=== PATIENT | female | born 1985 | race Caucasian/White ===

== ENCOUNTER → 2024-02-01 09:24 | Outpatient (REF) | payer OTHER, SELFPAY | LOC: WDC 09:24 | PROVIDERS: ATTENDING PHYSICIAN Surgery; FAMILY PHYSICIAN Nurse Practitioner Adult Health | DX: R92.8 Other abnormal and inconclusive findings on diagnostic imaging of breast (principal) | CPT/HCPCS: 76642 ==

== ENCOUNTER 2024-08-21 17:21 | Emergency (ER) | payer OTHER, SELFPAY ==
[2024-08-21 17:29] VITALS: BP 179/121
--- NOTE | 2024-08-21 17:31 | ED.GENMED ---
ED Provider Triage
-
Patient seen by provider in Triage?: Seen in Triage
Attestation: A medical screening examination has been initiated by a qualified medical provider. Based on the assessment performed at this time, it has been determined that an emergent medical condition may exist and the patient has been informed
that further medical evaluation and possible additional diagnostic testing may be needed.
HPI: 39-year-old female presents for went to OB for possible yeast infection and found to have high blood pressure.
Has a headache 1/10 past 20 minutes. Denies n/v. Denies change in vision.
New med since [employer] control. At [facility] office the patch was removed.
GENERAL: Alert , in no apparent distress
EYE: No visual abnormalities.
NECK: Trachea midline
ENT: No visible abnormalities.
LUNGS: No acute respiratory distress
NEUROLOGICAL: Alert and oriented
SKIN: Skin intact. No visible changes.
MUSCULOSKELETAL: Moving extremities normally
PSYCH: Normal and appropriate interaction.
This is a medical evaluation conducted in person to initiate diagnostic evaluation and provide initial therapeutics. Please see further documentation by the treating clinician.
History of Present Illness
General
Chief Complaint: Blood Pressure Problem
ED Attending Note
-
Portions of this chart may have been created with voice recognition software.� Occasional wrong word or��sound alike� substitutions may have occurred due to the inherent limitations of voice recognition software.
Discharge Plan
Departure
Prescriptions:
No Action
One Tablet Capsule
1 cap PO DAILY
calcium carbonate [Antacid (calcium carbonate)] 1 TABLET tablet,chewable
1 tab PO PRN PRN (Reason: heartburn)
Gasx
1 tab PO PRN PRN (Reason: ABD. DISCOMFORT)
Zantac
1 tab PO PRN PRN (Reason: ABDOMINAL GAS)
ibuprofen 600 MG tablet
600 mg PO Q4HPRN PRN (Reason: moderate pain/cramps) 0RF
Interventions
Interventions:
*Risk Screen - Suicide Last Done: 08/21/24 17:29
*Neglect/Abuse Screening Last Done: 08/21/24 17:29
Discharge Date and Time
Print Language: STATELESS
[2024-08-21 17:52] LABS: % Basophils 0.9 % (0-2); % Eosinophils 1.8 % (0-6); % Immature Granulocytes 0.3 % (0-0.5); % Monocytes 5.9 % (1.7-9.3); % Neutrophils 62.1 % (42.2-75.2); Absolute Basophils 0.1 10^3/uL (0-0.2); Absolute Eosinophils 0.1 10^3/uL (0-0.7); Absolute Lymphocytes 2.3 10^3/uL (1.2-3.4); Absolute Monocytes 0.5 10^3/uL (0.1-0.6); Absolute Neutrophils 4.9 10^3/uL (1.4-6.5); Hematocrit 40.4 % (37.0-47.0); Hemoglobin 13.5 g/dL (12.0-16.0); Mean Corp Hgb Conc. 33.4 g/dL (33.0-37.0); Mean Corpuscular Hgb 31.5 pg (27.0-31.0); Mean Corpuscular Volume 94.4 fL (81.0-99.0); Mean Platelet Volume 8.7 fL (7.4-10.4); Nucleated Red Blood Cells % 0 %; Platelet Count 277 10^3/uL (130-400); Red Blood Cell Count 4.28 10^6/uL (4.20-5.40); Red Cell Dist. Width 12.9 % (11.5-14.5); White Blood Cell Count 7.9 10^3/uL (4.8-10.8)
[2024-08-21 18:07] LABS: ALT (SGPT) 16 U/L (0-35); AST (SGOT) 21 U/L (14-36); Albumin 4.4 g/dl (3.5-5.0); Alkaline Phosphatase 56 U/L (38-126); Blood Urea Nitrogen 16 mg/dl (7-17); Calcium 9.3 mg/dl (8.4-10.2); Carbon Dioxide 27 mmol/L (22-30); Chloride 100 mmol/L (98-107); Glucose 94 mg/dl (70-99); Potassium 4.3 mmol/L (3.5-5.1); Sodium 134 mmol/L (135-145); Total Bilirubin 0.4 mg/dl (0.2-1.3); eGFR > 60.00
[2024-08-21 21:03] VITALS: BP 170/116
[2024-08-21 21:09] VITALS: BMI 23.9
--- NOTE | 2024-08-21 21:10 | ED.GENMED ---
Addendum entered and electronically signed by Stefanie Shah NP 08/22/24 16:40:
..
Original Note:
History of Present Illness
General
Chief Complaint: Blood Pressure Problem
Source: patient
Exam Limitations: none
Time Seen by Provider: 08/21/24 20:40
Nursing documentation reviewed up to this point in time: agreed with
History of Present Illness
History of Present Illness:
Patient is a 39-year-old female who presents to the ER for evaluation of elevated blood pressure. Patient went to see her buyer [facility] for evaluation of yeast infection and was told her blood pressure was elevated. She reports they took it 3
times. She has no prior history of elevated blood pressure that she is aware of. She did speak with her primary care office and in July her blood pressure was normal.
She does however admit that she is under tremendous amount of stress with going through a very stressful divorce.
She does have mild headache to bilateral caodaism area. Denies any nausea vomiting blurry vision. She does not smoke cigarettes but does vape CBD. She reports to having an egg sandwich today with extra saldaña. She denies any recent illness fever
chills cough chest pain shortness of breath
Review of Systems
Review of Systems
Allergies reviewed?: Yes
All Other Systems: ROS reviewed and negative except as documented in HPI and ROS
Constitutional: Reports no symptoms
Respiratory: Reports no symptoms; Denies trouble breathing
Cardiac: Reports no symptoms; Denies chest pain, palpitations or syncope
ABD/GI: Reports no symptoms; Denies abdominal pain, nausea or vomiting
: Reports no symptoms
Musculoskeletal: Reports no symptoms
Skin: Reports no symptoms
Neurological: Reports headache; Denies dizzy or numbness
Psychiatric: Reports no symptoms
Phy Exam
General Physical Exam
General Presentation: no apparent distress
General age: appears stated age
General Skin: warm and dry
General Habitus: normal
General Mental: alert
General Hydration: appears well hydrated
Eye Exam
Eye Exam: PERRL and EOMI
Eye Exam General: EOM intact: bilateral
Pupil Exam: Bilateral: round and reactive
Cardiovascular Exam
Cardiovascular Exam: regular rate/rhythm, no murmur and normal peripheral pulses
Pulmonary Exam
Pulmonary Exam: lungs clear and no respiratory distress
Neurological Exam
Neurological Exam: alert and oriented x3
Musculoskeletal Exam
Musculoskeletal Exam: full ROM
Skin Exam
Skin Exam: normal color and warm/dry
Psychiatric Exam
Psychiatric Exam: normal mood/affect
Course
Orders/Labs/Results
Orders:
Orders
08/21/24 17:34
Electrocardiogram (*1) Urgent
Reason for Study: Hypertension, Benign
08/21/24 17:35
Electrocardiogram (*1) Urgent
Reason for Study: Hypertension, Benign
EKG- Treatment ONCE
08/21/24 17:44
Complete Blood Count/With Diff Urgent
Comprehensive Metabolic Panel Urgent
08/21/24 21:08
CT Head W/o Iv Contrast Urgent
Comment:
Reason For Exam: headache hypertensive
08/21/24 21:09
Acetaminophen [Tylenol] 1,000 mg PO NOW STA
08/21/24 22:28
Urinalysis Reflex To Culture Urgent
Date Specimen was Collected: 08/21/24
Time Specimen was Collected: 22:27
Abnormal Lab Results
08/21/24
17:44
MCH 31.5 H pg
(27.0-31.0)
Sodium 134 L mmol/L
(135-145)
08/21/24 17:44
08/21/24 17:44
Vital Signs
Initial and Last Documented VS:
Initial Vital Signs
Temp Pulse Resp BP Pulse Ox
98.7 F 95 16 179/121 98
08/21/24 17:29 08/21/24 17:29 08/21/24 17:29 08/21/24 17:29 08/21/24 17:29
Last Documented Vital Signs
Temp Pulse Resp BP Pulse Ox
98.7 F 76 20 140/110 99
08/21/24 17:29 08/21/24 22:21 08/21/24 22:21 08/21/24 22:21 08/21/24 22:21
Foam Molder consulted with Physician
Foam Molder consulted with physician?: Yes
Name of Physician Consulted: Jessee
MDM/Problems Addressed
MDM/Problems Addressed:
Patient is a 39-year-old female who was sent for elevated blood pressure. Patient was seen at [facility] office today for possible yeast infection and was told her blood pressure was high several times. She has mild headache however no chest pain
shortness of breath no prior history of elevated blood pressure. She was last at her PCP office in July. She reports she did call that her blood pressure was normal at the time. She does report however that she is going through a very
stressful divorce. Patient presents awake alert no acute distress manual blood pressure taken by nurse at bedside 170/116 with a heart rate of 83. Patient does have a mild headache low suspicion for intracranial hemorrhage however with symptoms we
will check CT head.
2234: CAT scan head negative. Patient no acute distress repeat blood pressure 140s over 110. Patient has an appointment with her primary care physician group to he get internal medicine tomorrow at 2 PM. Labs unremarkable including normal kidney
function.
Case reviewed ED physician will hold off on prescribing any blood pressure medication at this time since patient has an appointment tomorrow I did review low-sodium diet and ways to de- stress.
*Radiology
Radiology exam reviewed: radiology read reviewed
*Pulse Oximetry
Patient hypoxic: no
*EKG
Interpreted by ED Provider?: Yes
Interpretation: normal
Comparison EKG: no comparison EKG present
Heart Rate: 92
Rate: normal
Rhythm: sinus
Ischemia: no ischemia
*Critical Care Note
Total Time (30-74mins, 75-104mins- exclusive of procedures): Not Applicable
ED Attending Note
-
Portions of this chart may have been created with voice recognition software.� Occasional wrong word or��sound alike� substitutions may have occurred due to the inherent limitations of voice recognition software.
Discharge Plan
Departure
Patient Disposition: Home (Routine Discharge)
Date of Disposition: 08/21/24
Time of Disposition: 22:38
Patient with high blood pressure during this ER visit?: Yes
Condition: Fair
Covid-19: Not Applicable
Discharge Problem:
elevated blood pressure
Instructions: High Blood Pressure (DC), BLOOD PRESSURE
Prescriptions:
No Action
calcium carbonate [Antacid (calcium carbonate)] 1 TABLET tablet,chewable
1 tab PO PRN PRN (Reason: heartburn)
Zantac
1 tab PO PRN PRN (Reason: ABDOMINAL GAS)
Adderall XR
30 mg PO DAILY
Flonase
1 spray intranasal DAILY
duloxetine
60 mg PO DAILY
pantoprazole
40 mg PO DAILY
Activity Restrictions/Additional Instructions:
As discussed please follow-up with your family doctor as scheduled tomorrow for reevaluation of elevated blood pressure.
Also follow a low-sodium diet
Return if any worsening of symptoms
Interventions
Interventions:
*Risk Screen - Suicide Last Done: 08/21/24 17:29
*Neglect/Abuse Screening Last Done: 08/21/24 17:29
ED- Fall Risk Assessment Last Done: 08/21/24 21:10
*ED COVID-19 Vaccine History Last Done: 08/21/24 21:25
ED- Cardiac Assessment Last Done: 08/21/24 21:10
ED- Neurological Assessment Last Done: 08/21/24 21:10
ED- Pulmonary Assessment Last Done: 08/21/24 21:10
Discharge Date and Time
Print Language: SWEDISH
[2024-08-21] MEDS: TYLENOL 1000 MG PO (21:20)
[2024-08-21 22:21] VITALS: BP 140/110
[2024-08-21 22:38] LABS: Urine Albumin Negative (Neg - Trace); Urine Bilirubin Negative (Negative); Urine Character Clear (Clear); Urine Color Straw; Urine Glucose Negative (Negative); Urine Ketone Negative (Negative); Urine Leukocyte Negative (Negative); Urine Nitrite Negative (Negative); Urine Occult Blood Negative (Negative); Urine Specific Gravity 1.005 (<1.030); Urine Urobilinogen Negative (Neg - 1+)
== END 2024-08-21 23:00 | disposition home or self-care (01) ==
LOC: EMR 17:21
PROVIDERS: Registered Nurse; EMERGENCY PHYSICIAN Student in an Organized Health Care Education/Training Program; FAMILY PHYSICIAN Nurse Practitioner Adult Health
DX: R03.0 Elevated blood-pressure reading, without diagnosis of hypertension (principal); Z63.5 Disruption of family by separation and divorce; Z73.3 Stress, not elsewhere classified
CPT/HCPCS: 99285; 70450; 80053; 81003; 85025; 93005

== ENCOUNTER → 2024-10-24 13:44 | Outpatient (REF) | payer OTHER, SELFPAY | LOC: WDC 13:44 | PROVIDERS: ATTENDING PHYSICIAN Nurse Practitioner Adult Health | DX: Z12.31 Encounter for screening mammogram for malignant neoplasm of breast (principal); R92.8 Other abnormal and inconclusive findings on diagnostic imaging of breast | CPT/HCPCS: 76642; 77063; 77067 ==

== ENCOUNTER → 2024-11-10 10:25 | Outpatient (REF) | payer OTHER, SELFPAY | LOC: HWRAD 10:25 | PROVIDERS: ATTENDING PHYSICIAN Obstetrics & Gynecology Gynecology; FAMILY PHYSICIAN Nurse Practitioner Adult Health | DX: Z30.430 Encounter for insertion of intrauterine contraceptive device (principal) | CPT/HCPCS: 76830; 76856 ==